=== PATIENT | male | born 1985 | race Asian ===

== ENCOUNTER 2020-02-14 17:43 | Emergency (ER) | payer OTHER ==
[~2020-02-14] VITALS: Ht 198.1 cm; Wt 81.0 kg
[2020-02-14 17:52] VITALS: BP 131/84
--- NOTE | 2020-02-14 18:53 | NUR ---
Patient given discharge instructions and Rx, they have confirmed that they understand the instructions. Patient ambulatory with steady gait.
== END 2020-02-14 19:05 | disposition home or self-care (01) ==
LOC: ED 19:04
DX: Z03.818 Encounter for observation for suspected exposure to other biological agents ruled out (principal); G43.C0 Periodic headache syndromes in child or adult, not intractable
CPT/HCPCS: 36415; 87635; 99283